=== PATIENT | female | born 1990 | race Caucasian/White ===

== ENCOUNTER 2016-11-26 23:34 | Inpatient (IN) | payer OTHER ==
[~2016-11-26] VITALS: Ht 172.7 cm; Wt 76.9 kg
[~2016-11-26 23:34] MED LIST: ASPI325T PO; DOXY100T PO; LORT5TAB PO; MORPHINE SULFATE 4 MG/ML INJ IV PUSH ONE; SPIR50TA PO
[2016-11-26] MEDS ORDERED: HYDROmorphone HCL PF 1 MG/ML VIAL ONE ×2 (23:38→23:53)
[2016-11-26] MEDS ORDERED: ONDANSETRON HCL 4 MG/2 ML VIAL ONE (23:38)
[2016-11-26 23:40] VITALS: O2SAT 100
[2016-11-26] MEDS ORDERED: VANCOMYCIN HCL 1000 MG VIAL ONE (23:42)
[2016-11-26] MEDS ORDERED: ceFAZolin 2 GM PREMIX 50 ML IV STA (23:45)
[2016-11-26 23:53] LABS: I-STAT POTASSIUM 3.5 MMOL/L (3.5-4.9); I-STAT SODIUM 141 MMOL/L (138-146)
[2016-11-26 23:56] LABS: AUTOMATED NEUTROPHIL # 8.6 TH/MM3 (1.8-7.7); BASOPHIL # 0.1 TH/MM3 (0-0.2); BASOPHIL % 0.4 % (0.0-2.0); EOSINOPHIL % 0.2 % (0.0-4.0); HEMO FLAGS DIFF FINAL; LYMPHOCYTE # 2.6 TH/MM3 (1.0-4.8); MEAN CELL VOLUME 89.9 FL (80.0-100.0); MEAN CORPUSCULAR HEMOGLOBIN 30.3 PG (27.0-34.0); MEAN CORPUSCULAR HGB CONC 33.7 % (32.0-36.0); MONO % 5.7 % (0.0-8.0); NEUT % 71.7 % (16.0-70.0); PLATELET COUNT 228 TH/MM3 (150-450); RED BLOOD COUNT 4.67 MIL/MM3 (4.00-5.30); RED CELL DISTRIBUTION WIDTH 12.4 % (11.6-17.2)
[2016-11-26] MEDS ORDERED: IOHEXOL 350 MG/ML 10 ML VIAL (for RAD DIAG) IV ONE (23:57)
[2016-11-26] MEDS ORDERED: DIPHTH/TETANUS/ACEL PERTUSSIS (BOOSTER) 0.5 ML VIAL/PFS IM ONE (23:58)
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
[2016-11-27] VITALS (9 sets, daily range): BP systolic 119–144; BP diastolic 60–86; PULSE 72–118; RESP 14–16; TEMP 98.3–98.9; O2SAT 97–100
[2016-11-27 00:07] LABS: APTT (PATIENT) 22.8 SEC (24.3-30.1)
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
[2016-11-27 00:15] LABS: BETA HCG QUANT LESS THAN 1 MIU/ML (0-5)
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
[2016-11-27] MEDS: SODIUM CHLOR 0.9% 1000 ML INJ 1,000 ML IV SCH ×3 (00:27→20:27)
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
[2016-11-27] MEDS ORDERED: NALOXONE HCL 0.4 MG/ML AMP IV PRN (00:30)
[2016-11-27] MEDS ORDERED: Post-op Orders (for Pharmacy) MISC XX ONE (00:30)
[2016-11-27] MEDS: PANTOPRAZOLE SODIUM 40 MG VIAL IV SCH ×2 (01:18→23:35)
[2016-11-27] MEDS: HYDROmorphone HCL PF 1 MG/ML VIAL IV PRN ×4 (01:48→05:56)
[2016-11-27] MEDS: CLINDAMYCIN INJ 600 MG in SODIUM CHLORIDE 0.9% INJ 50 ML IV SCH ×3 (02:19→19:00)
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
[2016-11-27 04:37] LABS: HEMATOCRIT 37.9 % (35.0-46.0); MEAN CORPUSCULAR HEMOGLOBIN 30.2 PG (27.0-34.0); MEAN CORPUSCULAR HGB CONC 33.6 % (32.0-36.0); PLATELET COUNT 177 TH/MM3 (150-450); RED BLOOD COUNT 4.22 MIL/MM3 (4.00-5.30); RED CELL DISTRIBUTION WIDTH 12.4 % (11.6-17.2); REVIEW FLAG FINAL; WHITE BLOOD COUNT 16.6 TH/MM3 (4.0-11.0)
[2016-11-27] MEDS ORDERED: VANCOMYCIN HCL 1000 MG VIAL ONE (06:53)
[2016-11-27] MEDS ORDERED: BUPIVACAINE/EPINEPHRINE 0.25% PF 10 ML VIAL ONE (06:54)
[2016-11-27] MEDS ORDERED: GENTAMICIN SULFATE 80 MG/2 ML VIAL ONE (06:54)
[2016-11-27] MEDS ORDERED: SODIUM CHLOR 0.9% 250 ML INJ 250 ML ONE (06:54)
[2016-11-27] MEDS: ONDANSETRON HCL 4 MG/2 ML VIAL IV PRN ×2 (07:27→14:01)
[2016-11-27] MEDS ORDERED: ACETAMINOPHEN 1000 MG/100 ML VIAL IV ONE (07:35)
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
[2016-11-27] MEDS: ceFAZolin 2 GM PREMIX 50 ML IV SCH ×4 (08:25→23:27)
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
[2016-11-27] MEDS: DOCUSATE SODIUM 100 MG CAP PO SCH ×2 (09:00→21:00)
[2016-11-27] MEDS: SODIUM CHLORIDE 0.9% FLUSH 5 ML FLUSH IVF SCH ×2 (09:00→21:00)
[2016-11-27] MEDS ORDERED: BACITRACIN TOP OINT 15 GM TUBE ONE (10:52)
[2016-11-27] MEDS ORDERED: DO NOT ADM ANY ANTICOAGULANT DRUGS XX PRN (11:00)
[2016-11-27] MEDS ORDERED: HYDR-3366 PO (11:16)
[2016-11-27] MEDS ORDERED: XARE10TA PO (11:16)
--- NOTE | 2016-11-27 11:18 | HHI.FF ---
Face to Face Verification Diagnosis: (1) Femur fracture, left (2) Closed left forearm fracture Nursing Dressing Changes: Daily dressing change, Emiliano wrap (left upper extremity), 4x4s , Xeroform, Coverderm/Primapore (left lower extremity) I have seen patient Shonda Panchal on 11/27/16. My clinical findings support the need for the requested home health care services because: Limited ability to care for self I certify that my clinical findings support that this patient is homebound because: Post-op weakness DESTINEY JONES PA-C Nov 27, 2016 11:18
[2016-11-27] MEDS ORDERED: fentaNYL CITRATE 250 MCG/5 ML AMP ONE (12:00)
[2016-11-27] MEDS ORDERED: PROPOFOL 200 MG/20 ML AMP IV ONE (12:00)
[2016-11-27] MEDS ORDERED: NORMOSOL R INJ 1,000 ML IV ONE (12:00)
[2016-11-27] MEDS: LACTATED RINGER'S 1000 ML INJ 1,000 ML IV SCH ×2 (12:00→19:00)
[2016-11-27] MEDS ORDERED: LACTATED RINGER'S 1000 ML INJ 2,000 ML IV ONE (12:00)
[2016-11-27] MEDS ORDERED: ONDANSETRON HCL 4 MG/2 ML VIAL IV PUSH ONE (12:00)
[2016-11-27] MEDS ORDERED: MORPHINE SULFATE 4 MG/ML INJ ONE (12:01)
[2016-11-27] MEDS: KETOROLAC TROMETHAMINE 30 MG/ML (IVP) VIAL IVP SCH ×2 (13:00→13:58)
[2016-11-27] MEDS ORDERED: *morphine SULFATE 8 MG/ML PERIprocedure ONLY ONE (13:02)
[2016-11-27] MEDS: MORPHINE SULFATE 4 MG/ML INJ IV PUSH PRN ×3 (13:30→23:26)
[2016-11-27] MEDS: GENTAMICIN 80 MG PREMIX 100 ML IV SCH ×2 (13:59→22:29)
[2016-11-27] MEDS: ACETAMINOPHEN/HYDROcodone 325 MG/10 MG TAB PO PRN (14:56)
[2016-11-27] MEDS ORDERED: LORazepam 2 MG/ML VIAL IV ONE (17:00)
[2016-11-28] VITALS (7 sets, daily range): BP systolic 116–128; BP diastolic 59–72; PULSE 90–105; RESP 16–18; TEMP 97.8–99.8; O2SAT 95–100
[2016-11-28] MEDS: ACETAMINOPHEN/HYDROcodone 325 MG/10 MG TAB PO PRN ×4 (02:36→21:45)
[2016-11-28] MEDS: LORazepam 2 MG/ML VIAL IV PRN ×2 (02:39→10:59)
[2016-11-28] MEDS: LACTATED RINGER'S 1000 ML INJ 1,000 ML IV SCH (05:00)
[2016-11-28 05:30] LABS: AUTOMATED NEUTROPHIL # 7.9 TH/MM3 (1.8-7.7); BASOPHIL % 0.2 % (0.0-2.0); HEMATOCRIT 31.3 % (35.0-46.0); HEMO FLAGS DIFF FINAL; LYMPH % 13.7 % (9.0-44.0); LYMPHOCYTE # 1.4 TH/MM3 (1.0-4.8); MEAN CELL VOLUME 90.6 FL (80.0-100.0); MEAN CORPUSCULAR HEMOGLOBIN 31.2 PG (27.0-34.0); MEAN CORPUSCULAR HGB CONC 34.4 % (32.0-36.0); MONO % 8.3 % (0.0-8.0); NEUT % 77.8 % (16.0-70.0); PLATELET COUNT 150 TH/MM3 (150-450); RED BLOOD COUNT 3.46 MIL/MM3 (4.00-5.30); RED CELL DISTRIBUTION WIDTH 12.7 % (11.6-17.2); WHITE BLOOD COUNT 10.2 TH/MM3 (4.0-11.0)
[2016-11-28 05:52] LABS: ALT (GPT) 23 U/L (10-53); ANION GAP 7 MEQ/L (5-15); AST (GOT) 45 U/L (15-37); BICARBONATE 27.2 MEQ/L (21.0-32.0); BLOOD UREA NITROGEN 8 MG/DL (7-18); CHLORIDE 108 MEQ/L (98-107); GLOMERULAR FILTRATION RATE 102 ML/MIN (>89); MAGNESIUM 1.8 MG/DL (1.5-2.5); POTASSIUM 4.1 MEQ/L (3.5-5.1); SODIUM (NA) 142 MEQ/L (136-145)
[2016-11-28 05:54] LABS: ALKALINE PHOSPHATASE 35 U/L (45-117); TOTAL BILIRUBIN ADULT 0.7 MG/DL (0.2-1.0)
[2016-11-28] MEDS: SODIUM CHLOR 0.9% 1000 ML INJ 1,000 ML IV SCH (06:27)
[2016-11-28] MEDS: KETOROLAC TROMETHAMINE 30 MG/ML (IVP) VIAL IVP SCH ×2 (06:34→13:20)
[2016-11-28] MEDS: GENTAMICIN 80 MG PREMIX 100 ML IV SCH ×3 (06:35→21:46)
[2016-11-28] MEDS: MORPHINE SULFATE 4 MG/ML INJ IV PUSH PRN ×4 (06:45→23:40)
--- NOTE | 2016-11-28 08:36 | RADRPT ---
EXAM DATE/TIME: 11/27/2016 09:31 [facility] COMPARISON: FOREARM LEFT (2VWS), November 26, 2016, 23:29. INDICATIONS : Left forearm fracture repair. OR. MEDICAL HISTORY : None. SURGICAL HISTORY : None. ENCOUNTER: Initial ACUITY: 1 day PAIN SCORE: Non-responsive. LOCATION: Left forearm FINDINGS: 5 spot fluoroscopic images obtained in the operating room during a procedure demonstrates placement o f a side plate on the radius and ulna with multiple interlocking screws. There is improved anatomic a lignment of the comminuted radius and ulna fractures. CONCLUSION: Improved anatomic alignment following ORIF of the radius and ulna. Jesus Cabrera MD on November 28, 2016 at 8:34 Board Certified Radiologist. This report was verified electronically.
--- NOTE | 2016-11-28 08:37 | RADRPT ---
EXAM DATE/TIME: 11/27/2016 10:03 [facility] COMPARISON: FEMUR LEFT (1 VW), November 26, 2016, 23:29. CT ABDOMEN & PELVIS W CONTRAST, November 27, 2016, 0:03. INDICATIONS : Left femur fracture repair. OR. MEDICAL HISTORY : None. SURGICAL HISTORY : None. ENCOUNTER: Initial ACUITY: 1 day PAIN SCORE: Non-responsive. LOCATION: Left femur FINDINGS: 6 spot fluoroscopic images obtained in the operating room during a procedure demonstrates placement o f a retrograde intramedullary miguel within the femur with 2 proximal and 2 distal interlocking screws. CONCLUSION: Improved anatomic alignment following left femur ORIF. Jesus Cabrera MD on November 28, 2016 at 8:35 Board Certified Radiologist. This report was verified electronically.
[2016-11-28] MEDS: DOCUSATE SODIUM 100 MG CAP PO SCH ×2 (08:55→20:16)
[2016-11-28] MEDS: ceFAZolin 2 GM PREMIX 50 ML IV SCH ×3 (08:56→23:41)
[2016-11-28] MEDS: SODIUM CHLORIDE 0.9% FLUSH 5 ML FLUSH IVF SCH ×2 (08:56→20:16)
[2016-11-28] MEDS: ONDANSETRON HCL 4 MG/2 ML VIAL IV PRN (10:21)
[2016-11-28] MEDS: SODIUM CHLORIDE 0.9% FLUSH 5 ML FLUSH IVF PRN ×3 (10:21→18:18)
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
[2016-11-28] MEDS: ENOXAPARIN SODIUM 30 MG/0.3 ML SYRINGE SQ SCH ×2 (11:04→20:16)
--- NOTE | 2016-11-28 11:13 | PD.ORT.PN ---
Subjective Subjective Remarks Pain controlled. No new complaints Objective Vitals Vital Signs Date Time Temp Pulse Resp B/P Pulse Ox O2 Delivery O2 Flow Rate FiO2 11/28/16 08:00 97.8 97 18 122/61 95 11/28/16 07:34 18 11/28/16 06:50 18 11/28/16 04:00 97.8 11/28/16 00:20 99.1 101 18 128/60 98 11/27/16 22:00 95 11/27/16 21:00 98 21 11/27/16 20:00 85 11/27/16 20:00 98.9 72 16 119/86 100 11/27/16 19:00 99 Nasal Cannula 3.00 11/27/16 18:00 80 11/27/16 16:16 98.3 80 14 125/60 98 11/27/16 16:00 98 11/27/16 13:15 97 Nasal Cannula 2.00 11/27/16 13:15 97 2.00 11/27/16 12:45 97.2 86 15 147/82 100 Nasal Cannula 3 11/27/16 12:15 73 15 150/74 100 Nasal Cannula 3 11/27/16 12:00 78 17 158/82 98 Nasal Cannula 3 11/27/16 11:45 75 17 147/76 98 Nasal Cannula 3 11/27/16 11:30 83 14 151/89 98 Nasal Cannula 3 11/27/16 11:24 97.7 98 14 143/79 97 Nasal Cannula 3 I/O 11/27/16 11/27/16 11/27/16 11/28/16 11/28/16 11/28/16 07:00 15:00 23:00 07:00 15:00 23:00 Intake Total 450 ml 3075 ml 828 ml 240 ml Output Total 500 ml 1600 ml 858 ml 900 ml Balance -50 ml 1475 ml -30 ml -660 ml Intake Oral 0 ml 240 ml IV Total 450 ml 575 ml 828 ml Other 2500 ml Output Urine Total 500 ml 1200 ml 858 ml 900 ml Estimated Blood Loss 400 ml # Bowel Movements 0 0 0 Result Diagram: 11/28/16 0434 11/28/16 0434 Imaging Last 72 hours Impressions Tibia/Fibula X-Ray 11/27/16 0000 Signed Impressions: Service Date/Time: Saturday, November 26, 2016 23:29 - CONCLUSION: Normal examination for a patient of this age. Eddie Fraga MD Radius/Ulna X-Ray 11/27/16 0000 Signed Impressions: Service Date/Time: Sunday, November 27, 2016 09:31 - CONCLUSION: Improved anatomic alignment following ORIF of the radius and ulna. Jesus Cabrera MD Femur X-Ray 11/27/16 0000 Signed Impressions: Service Date/Time: Sunday, November 27, 2016 10:03 - CONCLUSION: Improved anatomic alignment following left femur ORIF. Jesus Cabrera MD Ankle X-Ray 11/27/16 Signed Impressions: Service Date/Time: Sunday, November 27, 2016 03:22 - CONCLUSION: No acute fracture or joint dislocation. Eddie Fraga MD Pelvis X-Ray 11/26/162334 Signed Impressions: Service Date/Time: Saturday, November 26, 2016 23:29 - CONCLUSION: No acute fracture or joint dislocation. Eddie Fraga MD Head CT 11/26/162334 Signed Impressions: Service Date/Time: Saturday, November 26, 2016 23:57 - CONCLUSION: Unremarkable CT brain. Eddie Fraga MD Chest X-Ray 11/26/162334 Signed Impressions: Service Date/Time: Saturday, November 26, 2016 23:29 - CONCLUSION: No definite acute intrathoracic disease. Eddie Fraga MD Chest CT 11/26/162334 Signed Impressions: Service Date/Time: Sunday, November 27, 2016 00:03 - CONCLUSION: Interstitial infiltrate right upper lung characteristic for a pulmonary contusion. Otherwise , the rest of the examination is grossly unremarkable. Eddie Fraga MD Cervical Spine CT 11/26/162334 Signed Impressions: Service Date/Time: Saturday, November 26, 2016 23:57 - CONCLUSION: 1. Unremarkable CT scan of the cervical spine. 2. Infiltrate right apex suggestive of a pulmonary contusion. Eddie Fraga MD Abdomen/Pelvis CT 11/26/162334 Signed Impressions: Service Date/Time: Sunday, November 27, 2016 00:03 - CONCLUSION: 1. Small right ovarian cyst measuring 1.7 cm. 2. Otherwise, unremarkable examination. Eddie Fraga MD Radius/Ulna X-Ray 11/26/16 0000 Signed Impressions: Service Date/Time: Saturday, November 26, 2016 23:29 - CONCLUSION: Comminuted mildly displaced fractures involving the radius and ulna. Eddie Fraga MD Hand X-Ray 11/26/16 0000 Signed Impressions: Service Date/Time: Saturday, November 26, 2016 23:29 - CONCLUSION: No definite acute fracture or joint dislocation. Eddie Fraga MD Femur X-Ray 11/26/16 0000 Signed Impressions: Service Date/Time: Saturday, November 26, 2016 23:29 - CONCLUSION: Displaced fracture midshaft left femur. Eddie Fraga MD Objective Remarks Left upper extremity: Clean dry dressings intact intact sensation over the radial ulnar and median nerve distributions with good capillary refills. She is able to fully extend her fingers and make a fist Left lower extremity: Clean dry dressings over femur. Compartments soft. Distally neurovascularly intact strong dorsal flexion plantar flexion of foot Right lower extremity: Clean dry dressings over knee and tibia. Distally intact sensation good capillary refills. Strong dorsiflexion plantar flexion of foot Assessment & Plan Assessment and Plan Left radius and ulna shaft fracture status post open reduction internal fixation POD 1 Left femoral shaft fracture status post intramedullary miguel fixation POD 1 Irrigation debridement of right knee and anterior tibia with wound closure POD 1 PT left upper extremity nonweightbearing / right upper extremity weightbearing as tolerated Left lower extremity 50% weightbearing / right lower extremity weightbearing as tolerated Daily dressing changes beginning POD 2 left upper extremity and bilateral lower extremities, bacitracin over open laceration of right knee and right anterior tibia Lovenox Discharge planning Follow-up appointment with Dr. Philip or DEANGELO in 2 weeks DESTINEY JONES PA-C Nov 28, 2016 11:13
[2016-11-28] MEDS: PANTOPRAZOLE SODIUM 40 MG VIAL IV SCH (23:40)
[2016-11-29] VITALS (7 sets, daily range): BP systolic 122–133; BP diastolic 61–67; PULSE 93–112; RESP 17–18; TEMP 97–98.6; O2SAT 93–100
[2016-11-29] MEDS: ACETAMINOPHEN/HYDROcodone 325 MG/10 MG TAB PO PRN ×3 (05:52→20:43)
[2016-11-29] MEDS: GENTAMICIN 80 MG PREMIX 100 ML IV SCH (05:53)
--- NOTE | 2016-11-29 07:08 | PD.ORT.PN ---
Subjective Subjective Remarks Pain controlled. No new complaints Objective Vitals Vital Signs Date Time Temp Pulse Resp B/P Pulse Ox O2 Delivery O2 Flow Rate FiO2 11/29/16 00:00 97.4 106 17 122/67 100 11/28/16 20:00 98.5 103 17 117/59 100 11/28/16 18:23 18 11/28/16 16:35 95 21 11/28/16 16:16 18 11/28/16 16:00 99.8 105 16 126/72 96 11/28/16 12:00 97.8 90 16 116/60 95 11/28/16 08:30 Room Air 11/28/16 08:00 97.8 97 18 122/61 95 11/28/16 07:34 18 I/O 11/28/16 11/28/16 11/28/16 11/29/16 11/29/16 11/29/16 07:00 15:00 23:00 07:00 15:00 23:00 Intake Total 240 ml 720 ml 240 ml 240 ml Output Total 900 ml 2075 ml 200 ml 600 ml Balance -660 ml -1355 ml 40 ml -360 ml Intake Oral 240 ml 720 ml 240 ml 240 ml Output Urine Total 900 ml 2075 ml 200 ml 600 ml Stool Total 0 ml Result Diagram: 11/28/16 0434 11/28/16 0434 Imaging Last 72 hours Impressions Tibia/Fibula X-Ray 11/27/16 0000 Signed Impressions: Service Date/Time: Saturday, November 26, 2016 23:29 - CONCLUSION: Normal examination for a patient of this age. Eddie Fraga MD Radius/Ulna X-Ray 11/27/16 0000 Signed Impressions: Service Date/Time: Sunday, November 27, 2016 09:31 - CONCLUSION: Improved anatomic alignment following ORIF of the radius and ulna. Jesus Cabrera MD Femur X-Ray 11/27/16 0000 Signed Impressions: Service Date/Time: Sunday, November 27, 2016 10:03 - CONCLUSION: Improved anatomic alignment following left femur ORIF. Jesus Cabrera MD Ankle X-Ray 11/27/16 0000 Signed Impressions: Service Date/Time: Sunday, November 27, 2016 03:22 - CONCLUSION: No acute fracture or joint dislocation. Eddie Fraga MD Pelvis X-Ray 11/26/162334 Signed Impressions: Service Date/Time: Saturday, November 26, 2016 23:29 - CONCLUSION: No acute fracture or joint dislocation. Eddie Fraga MD Head CT 11/26/162334 Signed Impressions: Service Date/Time: Saturday, November 26, 2016 23:57 - CONCLUSION: Unremarkable CT brain. Eddie Fraga MD Chest X-Ray 11/26/162334 Signed Impressions: Service Date/Time: Saturday, November 26, 2016 23:29 - CONCLUSION: No definite acute intrathoracic disease. Eddie Fraga MD Chest CT 11/26/162334 Signed Impressions: Service Date/Time: Sunday, November 27, 2016 00:03 - CONCLUSION: Interstitial infiltrate right upper lung characteristic for a pulmonary contusion. Otherwise , the rest of the examination is grossly unremarkable. Eddie Fraga MD Cervical Spine CT 11/26/162334 Signed Impressions: Service Date/Time: Saturday, November 26, 2016 23:57 - CONCLUSION: 1. Unremarkable CT scan of the cervical spine. 2. Infiltrate right apex suggestive of a pulmonary contusion. Eddie Fraga MD Abdomen/Pelvis CT 11/26/162334 Signed Impressions: Service Date/Time: Sunday, November 27, 2016 00:03 - CONCLUSION: 1. Small right ovarian cyst measuring 1.7 cm. 2. Otherwise, unremarkable examination. Eddie Fraga MD Radius/Ulna X-Ray 11/26/16 0000 Signed Impressions: Service Date/Time: Saturday, November 26, 2016 23:29 - CONCLUSION: Comminuted mildly displaced fractures involving the radius and ulna. Eddie Fraga MD Hand X-Ray 11/26/16 0000 Signed Impressions: Service Date/Time: Saturday, November 26, 2016 23:29 - CONCLUSION: No definite acute fracture or joint dislocation. Eddie Fraga MD Femur X-Ray 11/26/16 0000 Signed Impressions: Service Date/Time: Saturday, November 26, 2016 23:29 - CONCLUSION: Displaced fracture midshaft left femur. Eddie Fraga MD Objective Remarks Left upper extremity: Clean dry dressings intact intact sensation over the radial ulnar and median nerve distributions with good capillary refills. She is able to fully extend her fingers and make a fist Left lower extremity: Clean dry dressings over femur. Compartments soft. Distally neurovascularly intact strong dorsal flexion plantar flexion of foot Right lower extremity: Clean dry dressings over knee and tibia. Dressings taken down and 2 lacerations are healing well. No signs of erythema or drainage. Distally intact sensation good capillary refills. Strong dorsiflexion plantar flexion of foot Assessment & Plan Assessment and Plan Left radius and ulna shaft fracture status post open reduction internal fixation POD 2 Left femoral shaft fracture status post intramedullary miguel fixation POD 2 Irrigation debridement of right knee and anterior tibia with wound closure POD 2 PT left upper extremity nonweightbearing / right upper extremity weightbearing as tolerated Left lower extremity 50% weightbearing / right lower extremity weightbearing as tolerated Daily dressing changes beginning today left upper extremity and bilateral lower extremities, bacitracin over open laceration of right knee and right anterior tibia Lovenox Discharge planning to home with home health care when cleared by PT Follow-up appointment with Dr. Philip or DEANGELO in 2 weeks DESTINEY JONES PA-C Nov 29, 2016 07:08
[2016-11-29] MEDS ORDERED: WHEEMIS3 (07:10)
[2016-11-29] MEDS: MORPHINE SULFATE 4 MG/ML INJ IV PUSH PRN ×2 (08:32→12:39)
[2016-11-29] MEDS: ENOXAPARIN SODIUM 30 MG/0.3 ML SYRINGE SQ SCH ×2 (08:46→20:43)
[2016-11-29] MEDS: DOCUSATE SODIUM 100 MG CAP PO SCH (08:46)
[2016-11-29] MEDS ORDERED: BACITRACIN TOP OINT 15 GM TUBE TOP SCH (09:00)
[2016-11-29] MEDS ORDERED: LACTULOSE SYRUP 20 GM/30 ML CUP PO ONE (12:15)
--- NOTE | 2016-11-29 15:55 | HHI.PR ---
Subjective Subjective Notes Pain controlled. No complaints. Objective Vitals/I&O Vital Signs Date Time Temp Pulse Resp B/P Pulse Ox O2 Delivery O2 Flow Rate FiO2 11/29/16 15:45 99 21 11/29/16 12:00 97.6 112 18 133/64 11/28/16 08:30 Room Air 11/27/16 19:00 3.00 Labs Laboratory Tests Test 11/26/16 11/27/16 11/28/16 23:38 02:00 04:34 Bedside Hemoglobin 14.3 G/DL Bedside Hematocrit 42.0 % Prothrombin Time 11.0 SEC Prothromb Time International 1.0 RATIO Ratio Activated Partial 22.8 SEC Thromboplast Time Bedside Sodium 141 MMOL/L Bedside Potassium 3.5 MMOL/L Bedside Chloride 104 MMOL/L Bedside Blood Urea Nitrogen 8 MG/DL Bedside Creatinine 0.7 MG/DL Bedside Glucose 144 MG/DL Human Chorionic Gonadotropin, LESS THAN 1 Quant MIU/ML Ethyl Alcohol Level 26 MG/DL Blood Type O POSITIVE Antibody Screen NEGATIVE Crossmatch Leukocyte-Reduced Red Blood Cells Blood Bank Comment Nasal Screen MRSA (PCR) NEGATIVE White Blood Count 10.2 TH/MM3 Red Blood Count 3.46 MIL/MM3 Hemoglobin 10.8 GM/DL Hematocrit 31.3 % Mean Corpuscular Volume 90.6 FL Mean Corpuscular Hemoglobin 31.2 PG Mean Corpuscular Hemoglobin 34.4 % Concent Red Cell Distribution Width 12.7 % Platelet Count 150 TH/MM3 Mean Platelet Volume 8.4 FL Neutrophils (%) (Auto) 77.8 % Lymphocytes (%) (Auto) 13.7 % Monocytes (%) (Auto) 8.3 % Eosinophils (%) (Auto) 0.0 % Basophils (%) (Auto) 0.2 % Neutrophils # (Auto) 7.9 TH/MM3 Lymphocytes # (Auto) 1.4 TH/MM3 Monocytes # (Auto) 0.8 TH/MM3 Eosinophils # (Auto) 0.0 TH/MM3 Basophils # (Auto) 0.0 TH/MM3 CBC Comment DIFF FINAL Differential Comment Sodium Level 142 MEQ/L Potassium Level 4.1 MEQ/L Chloride Level 108 MEQ/L Carbon Dioxide Level 27.2 MEQ/L Anion Gap 7 MEQ/L Blood Urea Nitrogen 8 MG/DL Creatinine 0.69 MG/DL Estimat Glomerular Filtration 102 ML/MIN Rate Random Glucose 105 MG/DL Calcium Level 7.9 MG/DL Magnesium Level 1.8 MG/DL Total Bilirubin 0.7 MG/DL Aspartate Amino Transf 45 U/L (AST/SGOT) Alanine Aminotransferase 23 U/L (ALT/SGPT) Alkaline Phosphatase 35 U/L Total Protein 5.3 GM/DL Albumin 2.4 GM/DL Radiology Last Impressions Tibia/Fibula X-Ray 11/27/16 0000 Signed Impressions: Service Date/Time: Saturday, November 26, 2016 23:29 - CONCLUSION: Normal examination for a patient of this age. Eddie Fraga MD Radius/Ulna X-Ray 11/27/16 Signed Impressions: Service Date/Time: Sunday, November 27, 2016 09:31 - CONCLUSION: Improved anatomic alignment following ORIF of the radius and ulna. Jesus Cabrera MD Femur X-Ray 11/27/16 Signed Impressions: Service Date/Time: Sunday, November 27, 2016 10:03 - CONCLUSION: Improved anatomic alignment following left femur ORIF. Jesus Cabrera MD Ankle X-Ray 11/27/16 Signed Impressions: Service Date/Time: Sunday, November 27, 2016 03:22 - CONCLUSION: No acute fracture or joint dislocation. Eddie Fraga MD Pelvis X-Ray 11/26/162334 Signed Impressions: Service Date/Time: Saturday, November 26, 2016 23:29 - CONCLUSION: No acute fracture or joint dislocation. Eddie Fraga MD Head CT 11/26/162334 Signed Impressions: Service Date/Time: Saturday, November 26, 2016 23:57 - CONCLUSION: Unremarkable CT brain. Eddie Fraga MD Chest X-Ray 11/26/162334 Signed Impressions: Service Date/Time: Saturday, November 26, 2016 23:29 - CONCLUSION: No definite acute intrathoracic disease. Eddie Fraga MD Chest CT 11/26/162334 Signed Impressions: Service Date/Time: Sunday, November 27, 2016 00:03 - CONCLUSION: Interstitial infiltrate right upper lung characteristic for a pulmonary contusion. Otherwise , the rest of the examination is grossly unremarkable. Eddie Fraga MD Cervical Spine CT 11/26/162334 Signed Impressions: Service Date/Time: Saturday, November 26, 2016 23:57 - CONCLUSION: 1. Unremarkable CT scan of the cervical spine. 2. Infiltrate right apex suggestive of a pulmonary contusion. Eddie Fraga MD Abdomen/Pelvis CT 11/26/16 2335 Signed Impressions: Service Date/Time: Sunday, November 27, 2016 00:03 - CONCLUSION: 1. Small right ovarian cyst measuring 1.7 cm. 2. Otherwise, unremarkable examination. Eddie Fraga MD Hand X-Ray 11/26/16 0000 Signed Impressions: Service Date/Time: Saturday, November 26, 2016 23:29 - CONCLUSION: No definite acute fracture or joint dislocation. Eddie Fraga MD Narrative Exam GENERAL: 26 year old well-nourished, well developed female lying in bed. SKIN: Warm and dry. HEAD: Normocephalic. CARDIOVASCULAR: Regular rate and rhythm. RESPIRATORY: No accessory muscle use. Lungs clear to auscultation. Breath sounds equal bilaterally. GASTROINTESTINAL: Abdomen soft, non-tender, nondistended. + BS. MUSCULOSKELETAL: Extremities without cyanosis, +1 edema LEFT arm. LEFT arm in soft splint. NEUROLOGICAL: Awake and alert. Normal speech. A/P Problem List: (1) Femur fracture, left (2) Closed left forearm fracture Assessment and Plan INJURIES: RIGHT pulmonary contusion LEFT radius and ulna fx LEFT femur fx PROCEDURES: 11/27: ORIF LEFT radius/ulna Reduction and IM nail LEFT FEMUR I&D and wound closure to RIGHT lower leg Diet: Regular, decreased appetite Pulm: IS. Acapella. EZpap. Encouraged use. Pain: [place]. Neurontin. Toradol x 4 doses. IV Morphine discontinued. Activity: OOB. PT and OT evaluating. (NWB LUE; 50%WB LLE). Patient requiring max assist to get OOB. GI: Pepcid Bowel: Colace. MOM. Lactulose 60mg x1. No BM yet. DVT: SCD's. Lovenox 30 q day Case management assisting with discharge planning. [facility] following for possible rehabilitation placement. Plan to DC in AM Plan of care discussed with patient and family at bedside. Problem Qualifiers (1) Femur fracture, left: (2) Closed left forearm fracture: Qualified Code: S52.92XA - Closed left forearm fracture, initial encounter Yesi Carrero Nov 29, 2016 15:55
[2016-11-29] MEDS: GABAPENTIN 300 MG CAP PO SCH (18:33)
[2016-11-29] MEDS: DOCUSATE SODIUM 50 MG/SENNA 8.6 MG TAB PO SCH (20:43)
[2016-11-29] MEDS: FAMOTIDINE 20 MG TAB PO SCH (20:43)
[2016-11-29] MEDS: SODIUM CHLORIDE 0.9% FLUSH 5 ML FLUSH IVF SCH (20:50)
[2016-11-30] VITALS: BP 121/62; PULSE 71; RESP 17; TEMP 97.2; O2SAT 96
[2016-11-30] MEDS: ACETAMINOPHEN/HYDROcodone 325 MG/10 MG TAB PO PRN ×4 (00:36→14:21)
[2016-11-30] MEDS: ONDANSETRON HCL 4 MG/2 ML VIAL IV PRN (04:47)
[2016-11-30 05:30] LABS: HEMATOCRIT 32.8 % (35.0-46.0); MEAN CELL VOLUME 89.7 FL (80.0-100.0); MEAN CORPUSCULAR HGB CONC 34.6 % (32.0-36.0); PLATELET COUNT 164 TH/MM3 (150-450); RED BLOOD COUNT 3.66 MIL/MM3 (4.00-5.30); RED CELL DISTRIBUTION WIDTH 12.3 % (11.6-17.2); REVIEW FLAG FINAL; WHITE BLOOD COUNT 6.8 TH/MM3 (4.0-11.0)
[2016-11-30 07:49] VITALS: O2SAT 96
[2016-11-30 08:00] VITALS: BP 122/61; PULSE 81; RESP 17; TEMP 97.6; O2SAT 90
[2016-11-30] MEDS: FAMOTIDINE 20 MG TAB PO SCH (08:07)
[2016-11-30] MEDS: DOCUSATE SODIUM 50 MG/SENNA 8.6 MG TAB PO SCH (08:07)
[2016-11-30] MEDS: GABAPENTIN 300 MG CAP PO SCH ×2 (08:07→14:36)
[2016-11-30] MEDS: SODIUM CHLORIDE 0.9% FLUSH 5 ML FLUSH IVF SCH (08:07)
--- NOTE | 2016-11-30 08:21 | PD.ORT.PN ---
Subjective Subjective Remarks POD 3 s/p retrogrande IMN left femur and ORIF left BBFA doing well. pain controlled. out of bed with therapy with difficulty Objective Vitals Vital Signs Date Time Temp Pulse Resp B/P Pulse Ox O2 Delivery O2 Flow Rate FiO2 11/30/16 07:49 96 21 11/30/16 00:00 97.2 71 17 121/62 96 11/29/16 20:00 97.6 93 17 127/66 96 11/29/16 16:00 98.6 94 17 123/61 96 11/29/16 15:45 99 21 11/29/16 12:00 97.6 112 18 133/64 93 I/O 11/29/16 11/29/16 11/29/16 11/30/16 11/30/16 11/30/16 07:00 15:00 23:00 07:00 15:00 23:00 Intake Total 660 ml 240 ml 240 ml 240 ml Output Total 600 ml 1100 ml 500 ml 600 ml Balance 60 ml -860 ml -260 ml -360 ml Intake Oral 240 ml 240 ml 240 ml 240 ml IV Total 420 ml 0 ml 0 ml Output Urine Total 600 ml 1100 ml 500 ml 600 ml # Bowel Movements 0 Result Diagram: 11/30/16 0441 11/28/16 0434 Imaging Last 72 hours Impressions Tibia/Fibula X-Ray 11/27/16 0000 Signed Impressions: Service Date/Time: Saturday, November 26, 2016 23:29 - CONCLUSION: Normal examination for a patient of this age. Eddie Fraga MD Radius/Ulna X-Ray 11/27/16 0000 Signed Impressions: Service Date/Time: Sunday, November 27, 2016 09:31 - CONCLUSION: Improved anatomic alignment following ORIF of the radius and ulna. Jesus Cabrera MD Femur X-Ray 11/27/16 0000 Signed Impressions: Service Date/Time: Sunday, November 27, 2016 10:03 - CONCLUSION: Improved anatomic alignment following left femur ORIF. Jesus Cabrera MD Ankle X-Ray 11/27/16 0000 Signed Impressions: Service Date/Time: Sunday, November 27, 2016 03:22 - CONCLUSION: No acute fracture or joint dislocation. Eddie Fraga MD Pelvis X-Ray 11/26/16 8075 Signed Impressions: Service Date/Time: Saturday, November 26, 2016 23:29 - CONCLUSION: No acute fracture or joint dislocation. Eddie Fraga MD Head CT 11/26/162334 Signed Impressions: Service Date/Time: Saturday, November 26, 2016 23:57 - CONCLUSION: Unremarkable CT brain. Eddie Fraga MD Chest X-Ray 11/26/162334 Signed Impressions: Service Date/Time: Saturday, November 26, 2016 23:29 - CONCLUSION: No definite acute intrathoracic disease. Eddie Fraga MD Chest CT 11/26/165 Signed Impressions: Service Date/Time: Sunday, November 27, 2016 00:03 - CONCLUSION: Interstitial infiltrate right upper lung characteristic for a pulmonary contusion. Otherwise , the rest of the examination is grossly unremarkable. Eddie Fraga MD Cervical Spine CT 11/26/165 Signed Impressions: Service Date/Time: Saturday, November 26, 2016 23:57 - CONCLUSION: 1. Unremarkable CT scan of the cervical spine. 2. Infiltrate right apex suggestive of a pulmonary contusion. Eddie Fraga MD Abdomen/Pelvis CT 11/26/162334 Signed Impressions: Service Date/Time: Sunday, November 27, 2016 00:03 - CONCLUSION: 1. Small right ovarian cyst measuring 1.7 cm. 2. Otherwise, unremarkable examination. Eddie Fraga MD Radius/Ulna X-Ray 11/26/16 Signed Impressions: Service Date/Time: Saturday, November 26, 2016 23:29 - CONCLUSION: Comminuted mildly displaced fractures involving the radius and ulna. Eddie Fraga MD Hand X-Ray 11/26/16 Signed Impressions: Service Date/Time: Saturday, November 26, 2016 23:29 - CONCLUSION: No definite acute fracture or joint dislocation. Eddie Fraga MD Femur X-Ray 11/26/16 Signed Impressions: Service Date/Time: Saturday, November 26, 2016 23:29 - CONCLUSION: Displaced fracture midshaft left femur. Eddie Fraga MD Objective Remarks Left upper extremity: Clean dry dressings intact intact sensation over the radial ulnar and median nerve distributions with good capillary refills. She is able to fully extend her fingers and make a fist Left lower extremity: Clean dry dressings over femur. Compartments soft. Distally neurovascularly intact strong dorsal flexion plantar flexion of foot Right lower extremity: Clean dry dressings over knee and tibia. Dressings taken down and 2 lacerations are healing well. No signs of erythema or drainage. Distally intact sensation good capillary refills. Strong dorsiflexion plantar flexion of foot Assessment & Plan Assessment and Plan 1) Left radius and ulna shaft fracture status post open reduction internal fixation POD 3 2) Left femoral shaft fracture status post intramedullary miguel fixation POD 3 Irrigation debridement of right knee and anterior tibia with wound closure POD 3 PT left upper extremity nonweightbearing / right upper extremity weightbearing as tolerated Left lower extremity 50% weightbearing / right lower extremity weightbearing as tolerated Daily dressing changes beginning today left upper extremity and bilateral lower extremities, bacitracin over open laceration of right knee and right anterior tibia Lovenox plan for discharge to [facility] ortho cleared for discharge to rehab when bed available Follow-up appointment with Dr. Philip or [place] in 2 weeks Finn Madrigal Nov 30, 2016 08:21
[2016-11-30] MEDS ORDERED: MAGNESIUM CITRATE SOLN 300 ML BTL PO ONE (09:00)
[2016-11-30] MEDS: ENOXAPARIN SODIUM 30 MG/0.3 ML SYRINGE SQ SCH (10:13)
[2016-11-30] MEDS ORDERED: FAMO20TA2 PO (11:12)
[2016-11-30] MEDS ORDERED: BACI500O2 TOP (11:12)
[2016-11-30] MEDS ORDERED: SENN1TAB PO (11:12)
[2016-11-30] MEDS ORDERED: NEUR300C PO (11:12)
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
[2016-11-30 12:00] VITALS: BP 119/58; PULSE 93; RESP 17; TEMP 97.1; O2SAT 93
[2016-11-30 16:00] VITALS: BP_SYST 122; BP_SYST 130; BP_DIAS 66; BP_DIAS 75; PULSE 75; PULSE 88; RESP 17; TEMP 96.9; TEMP 97.5; O2SAT 96; O2SAT 98
[2016-11-30] MEDS ORDERED: ASPI325T PO (18:29)
[2016-11-30] MEDS ORDERED: SPIR50TA PO (18:29)
[2016-12-11] MEDS ORDERED: WALKER/FOLDING1 MIS (14:06)
[2016-12-11] MEDS ORDERED: WHEEMIS3 (14:06)
[2016-12-13] MEDS ORDERED: HYDR-3366 PO (12:51)
[2016-12-13] MEDS ORDERED: BACI500O2 TOP (12:51)
[2016-12-13] MEDS ORDERED: POLY17S PO (12:51)
[2016-12-13] MEDS ORDERED: BACT800T5 PO (12:51)
[2016-12-13] MEDS ORDERED: SENN1TAB PO (12:51)
[2016-12-13] MEDS ORDERED: MECL-62 PO (12:51)
[2016-12-13] MEDS ORDERED: TEMA7.5C9 PO (12:51)
== END 2016-11-30 16:59 | DRG 956 ==
LOC: NEPI 23:34 → NEDA 11-27 00:12 → MERGE 11-27 00:12 → EDBD 11-27 00:12 → N03B 11-27 00:23 → N07B 11-27 23:20
PROVIDERS: ADMIT Surgery; ATTEND Surgery
PROC: 0PSL04Z Reposition Left Ulna with Internal Fixation Device, Open Approach (ICD-10-PCS; 2016-11-27)
PROC: 0HDKXZZ Extraction of Right Lower Leg Skin, External Approach (ICD-10-PCS; 2016-11-27)
PROC: 0HDKXZZ Extraction of Right Lower Leg Skin, External Approach (ICD-10-PCS; 2016-11-27)
PROC: 0QS906Z Reposition Left Femoral Shaft with Intramedullary Internal Fixation Device, Open Approach (ICD-10-PCS; principal; 2016-11-27 08:15)
PROC: 0PSJ04Z Reposition Left Radius with Internal Fixation Device, Open Approach (ICD-10-PCS; 2016-11-27 08:15)
DX: S72.302B Unspecified fracture of shaft of left femur, initial encounter for open fracture type I or II (principal); S27.321A Contusion of lung, unilateral, initial encounter; S52.252A Displaced comminuted fracture of shaft of ulna, left arm, initial encounter for closed fracture; S52.352A Displaced comminuted fracture of shaft of radius, left arm, initial encounter for closed fracture; S81.811A Laceration without foreign body, right lower leg, initial encounter; S81.021A Laceration with foreign body, right knee, initial encounter; Z88.0 Allergy status to penicillin; V28.1XXA Motorcycle passenger injured in noncollision transport accident in nontraffic accident, initial encounter; Y92.415 Exit ramp or entrance ramp of street or highway as the place of occurrence of the external cause
CPT/HCPCS: 70450; 71010; 71260; 72125; 72170; 73090; 73120; 73551; 73552; 73600; 74177; 76000; 80053; 80320; 82435; 82565; 82947; 83735; 84132; 84295; 84520; 84702; 85025; 85027; 85610; 85730; 86850; 86900; 86901; 86920; 87641; 90471; 94150; 94640; 94667; 94668; 96374; 96375; 99291; A0431-QM-SH; A0436-QM-SH; C1713; C1769; C9113; G0390; J0131; J0690; J1170; J1580; J1650; J1885; J2060; J2270; J2405; J3010; J3370; J7030; J7050; J7120; L0150; Q9967